=== PATIENT | female | born 1970 | race American Indian/Alaskan Native ===

== ENCOUNTER 2018-12-28 22:36 | Emergency (ER) | payer OTHER ==
[2018-12-28 23:18] VITALS: BP 139/41
--- NOTE | 2018-12-29 02:23 | Emergency Department Report ---
[facility] Chief Complaint: Eye Problems Stated Complaint: EYES IRRITATED Duration: 1 Day Side: Right Severity: moderate Symptoms: Yes Eye Itching (right eye), Yes Eye Redness (right eye), Yes Eye Pain (right eye), Yes Purulent Drainage (right eye), No Mucous Drainage, No Blurred Vision, No Preceding URI, No H/O Allergic Rhinitis, No Contact Lens Use, No Trauma, No Fever, No Headache Other History: This is a 48-year-old -[place] female presents with crusting and irritation to right eye. Patient states she woke up Saturday morning with crusting, pain, and mucoid discharge to right eye. Patient states she used Visine which improves some of the redness but pain continues. Patient denies grinding sensation, visual changes. ED Review of Systems ROS: Stated complaint: EYES IRRITATED Other details as noted in HPI Constitutional: denies: chills, fever Eyes: eye pain (right eye), eye discharge (right eye). denies: vision change Respiratory: denies: cough, shortness of breath, wheezing Cardiovascular: denies: chest pain, palpitations Gastrointestinal: denies: abdominal pain, nausea, diarrhea Skin: denies: rash, lesions Neurological: denies: headache, weakness, paresthesias Psychiatric: denies: anxiety, depression ED Past Medical Hx - Past Medical History Hx COPD: Yes Additional medical history: anemia with transfusion x2, bronchitis and pneumonia - Surgical History Past Surgical History?: No - Social History Smoking Status: Never Smoker Substance Use Type: None - Medications Home Medications: Home Medications Medication Instructions Recorded Confirmed Last Taken Type Hyoscyamine Subl [Levsin Sl 0.125 0.125 mg SL Q4HR PRN #16 tablet 04/19/14 Unknown Rx TAB] Ondansetron [Zofran Odt] 8 mg PO TID #12 tab.rapdis 04/19/14 Unknown Rx Neomy/Polymyx B/Hc (Otic) Soln 4 drops TID #10 ml 06/13/15 Unknown Rx [Cortisporin (Otic) Soln] cephALEXin [Keflex] 500 mg PO Q8HR #21 cap 06/13/15 Unknown Rx traMADol [Ultram 50 MG tab] 50 mg PO Q6HR PRN #20 tablet 06/13/15 Unknown Rx Albuterol Sulfate [Albuterol 0.63% 0.63 mg IH TID PRN #1 box 08/20/18 Unknown Rx NEBS] Ciprofloxacin HCl [Ciprofloxacin 500 mg PO Q12H #14 tab 08/20/18 Unknown Rx TAB] Ipratropium [Atrovent NEB] 0.5 mg IH Q8HRT #1 box 08/20/18 Unknown Rx Nebulizer and Compressor [[place] 1 each MC TID PRN #1 each 08/20/18 Unknown Rx Choice Nebulizer] Prednisone [predniSONE 10 mg 10 mg PO .TAPER #1 tab.ds.pk 08/20/18 Unknown Rx (6-Day Pack, 21 Tabs)] Azithromycin(Nf)1% Ophth Soln 1 drop OD DAILY #1 bottle 12/29/18 Unknown Rx [Azasite 1% Ophth Soln] [facility] Exam - Exam General: Vital signs noted. No distress. Alert and acting appropriately. Eye Exam: Right Injection, Right Chemosis, Right Purulent Discharge, Both EOMI, Neither Abnormal Pupil, Neither Eye Foreign Body, Neither Lid Foreign Body, Neither Mucous Discharge, Neither Fluorescein Uptake, Neither Fluorescein Uptake (slit lamp), Neither Cell/Flare (slit lamp), Neither Corneal Edema, Neither Photophobia HEENT: No Nasal Congestion, No Pharyngeal Erythema Remainder of HEENT: Normal Lungs: Yes Clear Lung Sounds, Yes Good Air Exchange, No Wheezes, No Stridor, No Cough, No Nasal Flaring, No Retractions, No Use of Accessory Muscles ED Course Vital Signs 12/28/18 23:12 Temperature 98 F Pulse Rate 66 Respiratory 18 Rate Blood Pressure 139/41 O2 Sat by Pulse 100 Oximetry ED Medical Decision Making - Medical Decision Making This patient was examined by this provider. Vitals are normal and patient is in no acute distress. Physical assessment susceptible of conjunctivitis to the right eye. Start azithromycin eye drops. Discussed plan with patient and she agreed with plan. Discharged home in stable condition. Follow up with PCP in 24- 72 hours. Critical care attestation.: If time is entered above; I have spent that time in minutes in the direct care of this critically ill patient, excluding procedure time. ED Disposition Clinical Impression: Conjunctivitis Qualifiers: Conjunctivitis type: acute Acute conjunctivitis type: bacterial Laterality: right Qualified Code(s): H10.31 - Unspecified acute conjunctivitis, right eye Disposition: DC-01 TO HOME OR SELFCARE Is pt being admited?: No Does the pt Need Aspirin: No Condition: Stable Instructions: Conjunctivitis (ED) Additional Instructions: [place] is very contagious so please wash hands frequently. Don't share any towels or bedding to prevent spread of infection. Follow up with primary care provider in 24-72 hours. Use cool compress to each eye to decrease swelling. Avoid rubbing or touching eyes, because rubbing eyes can cause worsening symptoms. Take medication as prescribed. Return to ER if swelling don't improve or difficulty breathing after 2 days of medication. Prescriptions: Azithromycin(Nf)1% Ophth Soln [Azasite 1% Ophth Soln] 1 drop OD DAILY #1 bottle Referrals: DAREN ZAMUDIO MD [Primary Care Provider] - 3-5 Days [facility] [Outside] - 3-5 Days [facility] [Outside] - 3-5 Days Forms: Work/School Release Form(ED) Time of Disposition: 02:33
== END 2018-12-29 02:45 | disposition home or self-care (01) ==
LOC: ED 22:36
DX: H10.9 Unspecified conjunctivitis (principal); J44.9 Chronic obstructive pulmonary disease, unspecified; D64.9 Anemia, unspecified

== ENCOUNTER 2019-04-08 08:01 | Emergency (ER) | payer SELFPAY ==
[2019-04-08] MEDS ORDERED: DUONEB *Not for PRN Use IH ONE ×2 (08:17→08:21)
--- NOTE | 2019-04-08 09:53 | XRay Report ---
CHEST 2 VIEWS INDICATION: shortness of breath, COPD. COMPARISON: 08/20/2018 FINDINGS: Support devices: None. Heart: Within normal limits. Lungs/pleura: The lungs are mildly hyperinflated. Right perihilar infiltrate has resolved since the p revious exam. The lungs are clear. No pleural effusion or pneumothorax. Additional findings: None. IMPRESSION: Mild emphysematous changes. No acute cardiopulmonary process. Signer Name: Colin Galeana Jr, MD Signed: 04/08/2019 9:49 AM Workstation Name: [id number]
[2019-04-08] MEDS ORDERED: DECADRON IV ONE (10:11)
[2019-04-08] MEDS ORDERED: MAGNESIUM SULFATE 2GM/50ML 2 GM/50 ML BAG IV ONE (10:12)
[2019-04-08] MEDS ORDERED: ATROVENT IH ONE (10:13)
[2019-04-08] MEDS ORDERED: PROVENTIL IH ONE (10:13)
--- NOTE | 2019-04-08 10:37 | Emergency Department Report ---
ED General Adult HPI - General Chief complaint: Dyspnea/Respdistress Stated complaint: MELANY:COUGHING:EAR ACHE Time Seen by Provider: 04/08/19 10:04 Source: patient Mode of arrival: Ambulatory Limitations: No Limitations - History of Present Illness Initial comments: Patient presents to the emergency department with the chief complaint of difficulty with breathing. Patient has a history of COPD and is out of her home medications. Patient does endorse having a recent cough and sick contacts. Patient is also supposed amount of smoking in the home. -: Gradual Severity scale (0 -10): 0 Improves with: none Worsens with: none Associated Symptoms: denies other symptoms Treatments Prior to Arrival: none - Related Data Previous Rx's Medication Instructions Recorded Last Taken Type Hyoscyamine Subl [Levsin Sl 0.125 0.125 mg SL Q4HR PRN #16 tablet 04/19/14 Unknown Rx TAB] Ondansetron [Zofran Odt] 8 mg PO TID #12 tab.rapdis 04/19/14 Unknown Rx Neomy/Polymyx B/Hc (Otic) Soln 4 drops TID #10 ml 06/13/15 Unknown Rx [Cortisporin (Otic) Soln] cephALEXin [Keflex] 500 mg PO Q8HR #21 cap 06/13/15 Unknown Rx traMADol [Ultram 50 MG tab] 50 mg PO Q6HR PRN #20 tablet 06/13/15 Unknown Rx Albuterol Sulfate [Albuterol 0.63% 0.63 mg IH TID PRN #1 box 08/20/18 Unknown Rx NEBS] Ciprofloxacin HCl [Ciprofloxacin 500 mg PO Q12H #14 tab 08/20/18 Unknown Rx TAB] Ipratropium [Atrovent NEB] 0.5 mg IH Q8HRT #1 box 08/20/18 Unknown Rx Nebulizer and Compressor [[place] 1 each MC TID PRN #1 each 08/20/18 Unknown Rx Choice Nebulizer] Prednisone [predniSONE 10 mg 10 mg PO .TAPER #1 tab.ds.pk 08/20/18 Unknown Rx (6-Day Pack, 21 Tabs)] Azithromycin(Nf)1% Ophth Soln 1 drop OD DAILY #1 bottle 12/29/18 Unknown Rx [Azasite 1% Ophth Soln] Albuterol Sulfate [Albuterol 0.63% 0.63 mg IH Q4HR PRN #30 ml 04/08/19 Unknown Rx NEBS] Benzonatate [Tessalon Perles] 100 mg PO Q8HR PRN #20 capsule 04/08/19 Unknown Rx levoFLOXacin [Levaquin] 750 mg PO QDAY #5 tablet 04/08/19 Unknown Rx predniSONE [Deltasone] 20 mg PO DAILY #15 tablet 04/08/19 Unknown Rx Allergies Allergy/AdvReac Type Severity Reaction Status Date / Time No Known Allergies Allergy Unverified 04/19/14 07:15 ED Review of Systems ROS: Stated complaint: MELANY:COUGHING:EAR ACHE Other details as noted in HPI Constitutional: denies: chills, fever Eyes: denies: eye pain, eye discharge, vision change ENT: denies: ear pain, throat pain Respiratory: shortness of breath. denies: cough, wheezing Cardiovascular: denies: chest pain, palpitations Endocrine: no symptoms reported Gastrointestinal: denies: abdominal pain, nausea, diarrhea Genitourinary: denies: urgency, dysuria, discharge Musculoskeletal: denies: back pain, joint swelling, arthralgia Skin: denies: rash, lesions Neurological: denies: headache, weakness, paresthesias Psychiatric: denies: anxiety, depression Hematological/Lymphatic: denies: easy bleeding, easy bruising ED Past Medical Hx - Past Medical History Previous Medical History?: Yes Hx COPD: Yes Additional medical history: anemia with transfusion x2, bronchitis and pneumonia - Surgical History Past Surgical History?: No - Social History Smoking Status: Never Smoker Substance Use Type: None - Medications Home Medications: Home Medications Medication Instructions Recorded Confirmed Last Taken Type Hyoscyamine Subl [Levsin Sl 0.125 0.125 mg SL Q4HR PRN #16 tablet 04/19/14 Unknown Rx TAB] Ondansetron [Zofran Odt] 8 mg PO TID #12 tab.rapdis 04/19/14 Unknown Rx Neomy/Polymyx B/Hc (Otic) Soln 4 drops TID #10 ml 06/13/15 Unknown Rx [Cortisporin (Otic) Soln] cephALEXin [Keflex] 500 mg PO Q8HR #21 cap 06/13/15 Unknown Rx traMADol [Ultram 50 MG tab] 50 mg PO Q6HR PRN #20 tablet 06/13/15 Unknown Rx Albuterol Sulfate [Albuterol 0.63% 0.63 mg IH TID PRN #1 box 08/20/18 Unknown Rx NEBS] Ciprofloxacin HCl [Ciprofloxacin 500 mg PO Q12H #14 tab 08/20/18 Unknown Rx TAB] Ipratropium [Atrovent NEB] 0.5 mg IH Q8HRT #1 box 08/20/18 Unknown Rx Nebulizer and Compressor [[place] 1 each MC TID PRN #1 each 08/20/18 Unknown Rx Choice Nebulizer] Prednisone [predniSONE 10 mg 10 mg PO .TAPER #1 tab.ds.pk 08/20/18 Unknown Rx (6-Day Pack, 21 Tabs)] Azithromycin(Nf)1% Ophth Soln 1 drop OD DAILY #1 bottle 12/29/18 Unknown Rx [Azasite 1% Ophth Soln] Albuterol Sulfate [Albuterol 0.63% 0.63 mg IH Q4HR PRN #30 ml 04/08/19 Unknown Rx NEBS] Benzonatate [Tessalon Perles] 100 mg PO Q8HR PRN #20 capsule 04/08/19 Unknown Rx levoFLOXacin [Levaquin] 750 mg PO QDAY #5 tablet 04/08/19 Unknown Rx predniSONE [Deltasone] 20 mg PO DAILY #15 tablet 04/08/19 Unknown Rx ED Physical Exam - General Limitations: No Limitations General appearance: alert, in no apparent distress - Head Head exam: Present: atraumatic, normocephalic - Eye Eye exam: Present: normal appearance - ENT ENT exam: Present: mucous membranes moist - Neck Neck exam: Present: normal inspection - Respiratory Respiratory exam: Present: respiratory distress (Mild respiratory Distress), wheezes - Cardiovascular Cardiovascular Exam: Present: regular rate, normal rhythm. Absent: systolic murmur, diastolic murmur, rubs, gallop - GI/Abdominal GI/Abdominal exam: Present: soft, normal bowel sounds. Absent: distended, tenderness - Extremities Exam Extremities exam: Present: normal inspection - Back Exam Back exam: Present: normal inspection - Neurological Exam Neurological exam: Present: alert, oriented X3, CN II-XII intact. Absent: motor sensory deficit - Psychiatric Psychiatric exam: Present: normal affect, normal mood - Skin Skin exam: Present: warm, dry, intact, normal color. Absent: rash ED Course Vital Signs 04/08/19 04/08/19 04/08/19 08:11 10:52 10:56 Temperature 98.4 F Pulse Rate 82 Respiratory 20 18 Rate Respiratory 24 Rate [Anterior Bilateral Throughout] Blood Pressure 118/66 O2 Sat by Pulse 97 99 Oximetry ED Medical Decision Making - Lab Data Result diagrams: 04/08/19 10:46 04/08/19 10:46 Lab Results 04/08/19 04/08/19 04/08/19 Range/Units 10:46 10:46 10:46 WBC 13.3 H (4.5-11.0) K/mm3 RBC 3.91 (3.65-5.03) M/mm3 Hgb 7.0 L (10.1-14.3) gm/dl Hct 24.4 L (30.3-42.9) % MCV 62 L (79-97) fl MCH 18 L (28-32) pg MCHC 29 L (30-34) % RDW 18.7 H (13.2-15.2) % Plt Count 346 (140-440) K/mm3 Lymph % (Auto) 9.4 L (13.4-35.0) % [place] % (Auto) 6.9 (0.0-7.3) % Eos % (Auto) 1.1 (0.0-4.3) % Baso % (Auto) 0.4 (0.0-1.8) % Lymph # 1.3 (1.2-5.4) K/mm3 [place] # 0.9 H (0.0-0.8) K/mm3 Eos # 0.1 (0.0-0.4) K/mm3 Baso # 0.1 (0.0-0.1) K/mm3 Seg Neutrophils % 82.2 H (40.0-70.0) % Seg Neutrophils # 11.0 H (1.8-7.7) K/mm3 Sodium 136 L (137-145) mmol/L Potassium 3.7 (3.6-5.0) mmol/L Chloride 102.6 (98-107) mmol/L Carbon Dioxide 23 (22-30) mmol/L Anion Gap 14 mmol/L BUN 10 (7-17) mg/dL Creatinine 0.7 (0.7-1.2) mg/dL Estimated GFR > 60 ml/min BUN/Creatinine Ratio 14 % Glucose 133 H (65-100) mg/dL Calcium 8.3 L (8.4-10.2) mg/dL Magnesium 2.00 (1.7-2.3) mg/dL Total Bilirubin 0.20 (0.1-1.2) mg/dL AST 10 (5-40) units/L ALT 11 (7-56) units/L Alkaline Phosphatase 61 (35-129) units/L NT-Pro-B Natriuret Pep 48.46 (0-450) pg/mL Total Protein 6.9 (6.3-8.2) g/dL Albumin 3.2 L (3.9-5) g/dL Albumin/Globulin Ratio 0.9 % - Radiology Data Radiology results: report reviewed - Medical Decision Making Symptoms improved after a continuous breathing treatment, IV magnesium, IV steroids. Critical care attestation.: If time is entered above; I have spent that time in minutes in the direct care of this critically ill patient, excluding procedure time. ED Disposition Clinical Impression: COPD with exacerbation Disposition: DC-01 TO HOME OR SELFCARE Is pt being admited?: No Does the pt Need Aspirin: No Condition: Stable Instructions: Chronic Obstructive Pulmonary Disease (ED) Additional Instructions: return if worse Referrals: DAREN ZAMUDIO MD [Primary Care Provider] - 3-5 Days [facility] [Provider Group] - 3-5 Days [facility] [Provider Group] - 3-5 Days Time of Disposition: 12:03
[2019-04-08 11:12] LABS: Basophils # (Auto) 0.1 K/mm3 (0.0-0.1); Basophils % (Auto) 0.4 % (0.0-1.8); Eosinophils # (Auto) 0.1 K/mm3 (0.0-0.4); Eosinophils % (Auto) 1.1 % (0.0-4.3); Hematocrit 24.4 % (30.3-42.9); Lymphocytes # (Auto) 1.3 K/mm3 (1.2-5.4); Lymphocytes % (Auto) 9.4 % (13.4-35.0); Mean Corpuscular HGB Conc 29 % (30-34); Mean Corpuscular Volume 62 fl (79-97); Monocytes # (Auto) 0.9 K/mm3 (0.0-0.8); Monocytes % (Auto) 6.9 % (0.0-7.3); Platelet Count 346 K/mm3 (140-440); Red Blood Count 3.91 M/mm3 (3.65-5.03); Red Cell Distribution Width 18.7 % (13.2-15.2)
[2019-04-08 11:31] LABS: Alanine Aminotransferase 11 units/L (7-56); Albumin 3.2 g/dL (3.9-5); BUN/Creatinine Ratio 14; Blood Urea Nitrogen 10 mg/dL (7-17); Calcium 8.3 mg/dL (8.4-10.2); Hemolysis Index 0
[2019-04-08 12:40] VITALS: BP 117/64
== END 2019-04-08 12:39 | disposition home or self-care (01) ==
LOC: ED 08:01
DX: J44.1 Chronic obstructive pulmonary disease with (acute) exacerbation (principal)
CPT/HCPCS: 36415; 71046; 80053; 83735; 83880; 85025; 94640; 96365; 96375; 99284; J1100; J3475

== ENCOUNTER 2019-06-07 19:24 | Emergency (ER) | payer SELFPAY ==
--- NOTE | 2019-06-07 19:56 | Event Note ---
ED Screening Note Date of service: 06/07/19 Time: 19:52 ED Screening Note: This is a 48 y.o. F. that presents to the ER with BLE edema for x 1 week. PMH COPD and anemia Reports pain with weight bearing. Denies SOB, wheezing, palpitations, chest pain, or injury. This initial assessment/diagnostic orders/clinical plan/treatment(s) is/are subject to change based on patients health status, clinical progression and re- assessment by fellow clinical providers in the ED. Further treatment and workup at subsequent clinical providers discretion. Patient/guardian urged not to elope from the ED as their condition may be serious if not clinically assessed and managed. Initial orders include: Labs and CXR
[2019-06-07 20:18] LABS: Basophils % (Auto) 0.5 % (0.0-1.8); Eosinophils # (Auto) 0.1 K/mm3 (0.0-0.4); Eosinophils % (Auto) 1.7 % (0.0-4.3); Hemoglobin 7.2 gm/dl (10.1-14.3); Lymphocytes # (Auto) 2.1 K/mm3 (1.2-5.4); Lymphocytes % (Auto) 29.1 % (13.4-35.0); Monocytes # (Auto) 0.8 K/mm3 (0.0-0.8); Monocytes % (Auto) 10.2 % (0.0-7.3)
--- NOTE | 2019-06-07 20:34 | XRay Report ---
CHEST PA AND LATERAL VIEWS INDICATION: MAIN: pedal edema PT SD SWELLING IN FEET X 1 WEEK..PT SD NO KNOWN HEART ISSUES..JTS. COMPARISON: 04/08/2019. FINDINGS: Support devices: None. Heart: Stable. Lungs/Pleura: No acute pulmonary or pleural findings. IMPRESSION: 1. No significant change. Signer Name: Dale Bolton MD Signed: 06/07/2019 8:30 PM Workstation Name: [id number]
[2019-06-07 20:43] LABS: Alanine Aminotransferase 13 units/L (7-56); Albumin 3.8 g/dL (3.9-5); BUN/Creatinine Ratio 11; Blood Urea Nitrogen 9 mg/dL (7-17); Calcium 8.9 mg/dL (8.4-10.2); Hemolysis Index 19
[2019-06-07 20:49] LABS: Hematocrit 24.4 % (30.3-42.9); Mean Corpuscular HGB Conc 30 % (30-34); Platelet Count 501 K/mm3 (140-440); Red Blood Count 3.91 M/mm3 (3.65-5.03); Red Cell Distribution Width 18.5 % (13.2-15.2)
[2019-06-07 20:51] LABS: Mean Corpuscular Volume 62 fl (79-97)
--- NOTE | 2019-06-08 01:20 | Vascular Lab Report ---
DUPLEX DOPPLER LOWER EXTREMITY VEINS, LEFT INDICATION: left leg pain and swelling. TECHNIQUE: Duplex doppler imaging was performed through the veins of the left lower extremity using venous compr ession and other maneuvers. COMPARISON: None available. FINDINGS: Common femoral vein: Negative. Superficial femoral vein: Negative. Popliteal vein: Negative. Calf veins: Negative. Additional findings: None. IMPRESSION: 1. No sonographic evidence for DVT in the left lower extremity. Signer Name: Timothy Ceballos MD Signed: 06/08/2019 1:15 AM Workstation Name: [id number]
--- NOTE | 2019-06-08 01:37 | Emergency Department Report ---
ED General Adult HPI - General Chief complaint: Extremity Injury, Lower Stated complaint: ANKLE SWELLING/NAUSEA Time Seen by Provider: 06/07/19 19:52 Source: patient Mode of arrival: Ambulatory Limitations: No Limitations - History of Present Illness Initial comments: This is a 48-year-old female who presents to ED complaining of lower left leg swelling and pain for the past week. Patient denies any injury, trauma, falls. Patient states that she took an Aleve PM prior to arrival to the ED which helped a little bit with the pain. Severity scale (0 -10): 8 - Related Data Previous Rx's Medication Instructions Recorded Last Taken Type Hyoscyamine Subl [Levsin Sl 0.125 0.125 mg SL Q4HR PRN #16 tablet 04/19/14 Unknown Rx TAB] Ondansetron [Zofran Odt] 8 mg PO TID #12 tab.rapdis 04/19/14 Unknown Rx Neomy/Polymyx B/Hc (Otic) Soln 4 drops TID #10 ml 06/13/15 Unknown Rx [Cortisporin (Otic) Soln] cephALEXin [Keflex] 500 mg PO Q8HR #21 cap 06/13/15 Unknown Rx Albuterol Sulfate [Albuterol 0.63% 0.63 mg IH TID PRN #1 box 08/20/18 Unknown Rx NEBS] Ciprofloxacin HCl [Ciprofloxacin 500 mg PO Q12H #14 tab 08/20/18 Unknown Rx TAB] Ipratropium [Atrovent NEB] 0.5 mg IH Q8HRT #1 box 08/20/18 Unknown Rx Nebulizer and Compressor [[place] 1 each MC TID PRN #1 each 08/20/18 Unknown Rx Choice Nebulizer] Prednisone [predniSONE 10 mg 10 mg PO .TAPER #1 tab.ds.pk 08/20/18 Unknown Rx (6-Day Pack, 21 Tabs)] Azithromycin(Nf)1% Ophth Soln 1 drop OD DAILY #1 bottle 12/29/18 Unknown Rx [Azasite 1% Ophth Soln] Albuterol Sulfate [Albuterol 0.63% 0.63 mg IH Q4HR PRN #30 ml 04/08/19 Unknown Rx NEBS] Benzonatate [Tessalon Perles] 100 mg PO Q8HR PRN #20 capsule 04/08/19 Unknown Rx levoFLOXacin [Levaquin] 750 mg PO QDAY #5 tablet 04/08/19 Unknown Rx predniSONE [Deltasone] 20 mg PO DAILY #15 tablet 04/08/19 Unknown Rx Compression Socks, Medium [Futuro 1 each MC DAILY #1 pack 06/08/19 Unknown Rx Restoring] Furosemide [Lasix] 20 mg PO QDAY #10 tablet 06/08/19 Unknown Rx traMADol [Ultram 50 MG tab] 50 mg PO Q6HR PRN #12 tablet 06/08/19 Unknown Rx Allergies Allergy/AdvReac Type Severity Reaction Status Date / Time No Known Allergies Allergy Unverified 04/19/14 07:15 ED Review of Systems ROS: Stated complaint: ANKLE SWELLING/NAUSEA Other details as noted in HPI ED Past Medical Hx - Past Medical History Previous Medical History?: Yes Hx COPD: Yes Additional medical history: anemia with transfusion x2, bronchitis and pneumonia - Surgical History Past Surgical History?: No - Social History Smoking Status: Never Smoker - Medications Home Medications: Home Medications Medication Instructions Recorded Confirmed Last Taken Type Hyoscyamine Subl [Levsin Sl 0.125 0.125 mg SL Q4HR PRN #16 tablet 04/19/14 Unknown Rx TAB] Ondansetron [Zofran Odt] 8 mg PO TID #12 tab.rapdis 04/19/14 Unknown Rx Neomy/Polymyx B/Hc (Otic) Soln 4 drops TID #10 ml 06/13/15 Unknown Rx [Cortisporin (Otic) Soln] cephALEXin [Keflex] 500 mg PO Q8HR #21 cap 06/13/15 Unknown Rx Albuterol Sulfate [Albuterol 0.63% 0.63 mg IH TID PRN #1 box 08/20/18 Unknown Rx NEBS] Ciprofloxacin HCl [Ciprofloxacin 500 mg PO Q12H #14 tab 08/20/18 Unknown Rx TAB] Ipratropium [Atrovent NEB] 0.5 mg IH Q8HRT #1 box 08/20/18 Unknown Rx Nebulizer and Compressor [[place] 1 each MC TID PRN #1 each 08/20/18 Unknown Rx Choice Nebulizer] Prednisone [predniSONE 10 mg 10 mg PO .TAPER #1 tab.ds.pk 08/20/18 Unknown Rx (6-Day Pack, 21 Tabs)] Azithromycin(Nf)1% Ophth Soln 1 drop OD DAILY #1 bottle 12/29/18 Unknown Rx [Azasite 1% Ophth Soln] Albuterol Sulfate [Albuterol 0.63% 0.63 mg IH Q4HR PRN #30 ml 04/08/19 Unknown Rx NEBS] Benzonatate [Tessalon Perles] 100 mg PO Q8HR PRN #20 capsule 04/08/19 Unknown Rx levoFLOXacin [Levaquin] 750 mg PO QDAY #5 tablet 04/08/19 Unknown Rx predniSONE [Deltasone] 20 mg PO DAILY #15 tablet 04/08/19 Unknown Rx Compression Socks, Medium [Futuro 1 each MC DAILY #1 pack 06/08/19 Unknown Rx Restoring] Furosemide [Lasix] 20 mg PO QDAY #10 tablet 06/08/19 Unknown Rx traMADol [Ultram 50 MG tab] 50 mg PO Q6HR PRN #12 tablet 06/08/19 Unknown Rx ED Physical Exam - General Limitations: No Limitations ED Course Vital Signs 06/07/19 06/07/19 19:46 19:48 Temperature 98.4 F 98.4 F Pulse Rate 78 78 Respiratory 16 18 Rate Blood Pressure 127/51 Blood Pressure 127/51 [Left] O2 Sat by Pulse 100 100 Oximetry ED Medical Decision Making - Lab Data Result diagrams: 06/07/19 20:04 06/07/19 20:04 Laboratory Last Values WBC 7.4 K/mm3 (4.5-11.0) 06/07/19 20:04 RBC 3.91 M/mm3 (3.65-5.03) 06/07/19 20:04 Hgb 7.2 gm/dl (10.1-14.3) L 06/07/19 20:04 Hct 24.4 % (30.3-42.9) L 06/07/19 20:04 MCV 62 fl (79-97) L 06/07/19 20:04 MCH 19 pg (28-32) L 06/07/19 20:04 MCHC 30 % (30-34) 06/07/19 20:04 RDW 18.5 % (13.2-15.2) H 06/07/19 20:04 Plt Count 501 K/mm3 (140-440) H 06/07/19 20:04 Lymph % (Auto) 29.1 % (13.4-35.0) 06/07/19 20:04 [place] % (Auto) 10.2 % (0.0-7.3) H 06/07/19 20:04 Eos % (Auto) 1.7 % (0.0-4.3) 06/07/19 20:04 Baso % (Auto) 0.5 % (0.0-1.8) 06/07/19 20:04 Lymph # 2.1 K/mm3 (1.2-5.4) 06/07/19 20:04 [place] # 0.8 K/mm3 (0.0-0.8) 06/07/19 20:04 Eos # 0.1 K/mm3 (0.0-0.4) 06/07/19 20:04 Baso # 0.0 K/mm3 (0.0-0.1) 06/07/19 20:04 Seg Neutrophils % 58.5 % (40.0-70.0) 06/07/19 20:04 Seg Neutrophils # 4.3 K/mm3 (1.8-7.7) 06/07/19 20:04 178.74 ng/mlDDU (0-234) 06/08/19 00:25 Sodium 138 mmol/L (137-145) 06/07/19 20:04 Potassium 3.5 mmol/L (3.6-5.0) L 06/07/19 20:04 Chloride 99.7 mmol/L (98-107) 06/07/19 20:04 Carbon Dioxide 26 mmol/L (22-30) 06/07/19 20:04 16 mmol/L 06/07/19 20:04 BUN 9 mg/dL (7-17) 06/07/19 20:04 0.8 mg/dL (0.7-1.2) 06/07/19 20:04 Estimated GFR > 60 ml/min 06/07/19 20:04 11 % 06/07/19 20:04 Glucose 86 mg/dL (65-100) 06/07/19 20:04 Calcium 8.9 mg/dL (8.4-10.2) 06/07/19 20:04 0.20 mg/dL (0.1-1.2) 06/07/19 20:04 AST 17 units/L (5-40) 06/07/19 20:04 ALT 13 units/L (7-56) 06/07/19 20:04 68 units/L (35-129) 06/07/19 20:04 NT-Pro-B Natriuret Pep 67.35 pg/mL (0-450) 06/07/19 20:04 6.9 g/dL (6.3-8.2) 06/07/19 20:04 3.8 g/dL (3.9-5) L 06/07/19 20:04 1.2 % 06/07/19 20:04 - Radiology Data Radiology results: report reviewed, image reviewed TECHNIQUE: Duplex doppler imaging was performed through the veins of the left lower extremity using venous compression and other maneuvers. COMPARISON: None available. FINDINGS: Common femoral vein: Negative. Superficial femoral vein: Negative. Popliteal vein: Negative. Calf veins: Negative. Additional findings: None. IMPRESSION: 1. No sonographic evidence for DVT in the left lower extremity. Signer Name: Timothy Ceballos MD Signed: 06/08/2019 1:15 AM Workstation Name: [id number] Transcribed By: SS Dictated By: Timothy Ceballos MD Electronically Authenticated By: Timothy Ceballos MD Signed Date/Time: 06/08/19 0115 - Medical Decision Making This is a 48-year-old female presents to ED with left lower leg edema. All labs within normal limits, d-dimer negative, Doppler ultrasound negative. Discussed the patient admitted to her compression socks prescriptions given. Discussed follow-up with primary care physician within 3-5 days. Chest x-ray was negative Discussed all result findings with the patient. Patient is in no acute distress Critical care attestation.: If time is entered above; I have spent that time in minutes in the direct care of this critically ill patient, excluding procedure time. ED Disposition Clinical Impression: Leg edema, left Disposition: DC-01 TO HOME OR SELFCARE Is pt being admited?: No Does the pt Need Aspirin: No Condition: Stable Instructions: Leg Edema (ED) Additional Instructions: Make sure to follow up with the primary care physician as discussed. Take all your medications as you've been prescribed. If you have any worsening symptoms or develop new symptoms please return to ED immediately. Prescriptions: Compression Socks, Medium [Futuro Restoring] 1 each MC DAILY #1 pack Furosemide [Lasix] 20 mg PO QDAY #10 tablet traMADol [Ultram 50 MG tab] 50 mg PO Q6HR PRN #12 tablet PRN Reason: Pain Referrals: PRIMARY CARE, [Primary Care Provider] - 3-5 Days [facility] [Outside] - 3-5 Days [facility] [Outside] - 3-5 Days [facility] [Provider Group] - 3-5 Days [facility] [Provider Group] - 3-5 Days Forms: Work/School Release Form Time of Disposition: 01:50
[2019-06-08 02:06] VITALS: BP 134/66
== END 2019-06-08 02:06 | disposition home or self-care (01) ==
LOC: ED 19:24
DX: R60.9 Edema, unspecified (principal); J44.9 Chronic obstructive pulmonary disease, unspecified; Z79.899 Other long term (current) drug therapy
CPT/HCPCS: 36415; 71046; 80053; 83880; 85025; 85379; 99284